=== PATIENT | male | born 1995 | race Caucasian/White ===

== ENCOUNTER 2016-12-03 22:32 | Observation (INO) | payer OTHER ==
[2016-12-03] MEDS ORDERED: NS 0.9% 1000 ML* 2,000 ML IV ONE (22:54)
[2016-12-03] MEDS ORDERED: Acetaminophen TAB* 325 MG PO ONE (23:10)
[2016-12-03 23:28] LABS: Hematocrit 43 % (42-52); Hemoglobin 14.5 g/dl (14.0-18.0); Mean Corpuscular HGB Conc 34 g/dl (31-36); Mean Corpuscular Hemoglobin 29 pg (27-31); Mean Corpuscular Volume 84 fL (80-94); Mean Platelet Volume 8 um3 (7.4-10.4); Red Blood Count 5.07 10^6/ul (4.0-5.4); Red Cell Distribution Width 13 % (10.5-15); White Blood Count 12.3 10^3/ul (3.5-10.8)
[2016-12-03 23:39] LABS: Albumin 4.2 g/dL (3.2-5.2); BUN/Creatinine Ratio 17.3 (8-20); C Reactive Protein 51.56 mg/L (< 5.00); EGFR African American 124.2 (>60); EGFR Non-African American 96.6 (>60); Potassium 3.8 mmol/L (3.5-5.0); Total Bilirubin 0.7 mg/dL (0.2-1.0); Total Protein 7.2 g/dL (6.4-8.9)
[2016-12-04] MEDS ORDERED: Iohexol 300* (CONTRAST) 10 ML SDV IV ONE (00:08)
[2016-12-04] MEDS ORDERED: Ibuprofen TAB* 400 MG PO ONE (00:12)
[2016-12-04 01:05] LABS: Urine Bilirubin Negative (Negative); Urine Glucose Negative (Negative); Urine Nitrite Negative (Negative)
[2016-12-04] MEDS ORDERED: ceFOXitin 2 GM IVPREMIX* 2 GM/50 ML BAG IVPB ONE (03:04)
[2016-12-04] MEDS ORDERED: Morphine INJ* 4 MG/ML 1 ML CARPUJECT IV ONE (03:44)
[2016-12-04] MEDS ORDERED: Ondansetron INJ* 2 MG/ML VIAL IV ONE (03:44)
[2016-12-04] MEDS ORDERED: HYDROmorphone INJ* 1 MG/ML CARPUJECT SYRINGE IV PRN (04:16)
[2016-12-04] MEDS ORDERED: Ondansetron INJ* 2 MG/ML VIAL IV PRN ×2 (04:16→12:21)
[2016-12-04] MEDS ORDERED: diPHENhydraMINE IV* 50 MG/ML 1 ml VIAL (BENADRYL) SLOW PUSH ONE (04:37)
[2016-12-04] MEDS ORDERED: Famotidine IV* 10 MG/ML 2 ML (20 mg) IV SLOW PU ONE (04:37)
[2016-12-04] MEDS ORDERED: methylPREDNISolone 125 MG* 2 ML VIAL IV ONE (04:37)
[2016-12-04] MEDS ORDERED: Albuterol 2.5 MG/3 ML NEB.SOL* (0.083%) INH ONE (04:39)
[2016-12-04] MEDS ORDERED: Levofloxacin 500 MG IVPREMIX(* 500 MG/100 ML BAG IVPB ONE (05:35)
[2016-12-04] MEDS ORDERED: Ciprofloxacin 400MG IVPREMIX(* 400 MG/200 ML BAG IVPB SCH (08:00)
[2016-12-04] MEDS: metroNIDAZOLE IV 500 MG/100ML* 500 MG/100 ML BAG IVPB SCH ×3 (09:25→21:58)
--- NOTE | 2016-12-04 10:09 | HP ---
H&P (Free Text) History and Physical: CC: RLQ abdominal pain HPI: 20 yo M with h/o asthma, ADHD presented to the ED last pm with abdominal pain, RLQ since Tuesday 11/28. He took PeptoBismol on several occasions with some improvement, but the pain persisted and is provoked by eating and movement. He has had loose BMs. He has no history of similar pain in the past but does report a "sensitive stomach." He has no h/o bloody diarrhea, dysuria, and notes his diet was normal throughout the week. Yesterday he felt weak, the pain was worse, and he had poor appetite and nausea. He presented to the [facility] and then to the ED. In the ED he was febrile to 102.4 and had a mild leukocytosis. He did not require pain medicine. He was sent for CT abd/pel that showed findings c/w appendicitis. He was administered cefoxitin and plans were made for admission. He then had anaphylaxis to the cefoxitin and was treated by ED staff and Hospitalist was consulted as well. At present, he denies any wheezing, SOB, tongue or lip swelling. PMH: ADHD, asthma. PSH: knee arthroscopy. Meds: Adderall ER 15 mg daily. All: Cefoxitin (anaphylaxis); Concerta (red face); lactose intolerant. SH: multimedia technician college student; +tob (on/off for 2 yrs; <1 ppd); rare EtOH; No IVDA. FH: Diabetes (mother, brother) ROS: 7 systems reviewed and findings significant for the above; otherwise negative. PE: Vital Signs Temp 97.3 F 12/04/16 07:52 Pulse 62 12/04/16 07:52 Resp 16 12/04/16 08:45 BP 103/50 12/04/16 07:52 Pulse Ox 98 12/04/16 07:52 Gen: WDWN M in NAD; lying in bed. HEENT: NCAT; EOMI; MMM; no otorhinorrhea; OP clear. Lungs: CTA B; no w/r/r. Heart: reg s1s2; no m/r/g. Abd: No scars; ND, soft, tender in RLQ; no Rovsings. BS +. Ext: warm; no c/c/e. Intake & Output 12/03/16 12/04/16 12/04/16 18:59 06:59 18:59 Intake Total 1999 108 Balance 1999 108 Weight 185 lb 185 lb Intake: IV Fluids 1999 108 Laboratory Results - last 24 hr 12/03/16 12/03/16 12/03/16 23:10 23:10 23:10 WBC 12.3 H RBC 5.07 Hgb 14.5 Hct 43 MCV 84 MCH 29 MCHC 34 RDW 13 Plt Count 242 MPV 8 Neut % (Auto) 75.9 Lymph % (Auto) 16.9 L Pima % (Auto) 5.2 Eos % (Auto) 1.7 Baso % (Auto) 0.3 Absolute Neuts (auto) 9.3 H Absolute Lymphs (auto) 2.1 Absolute Monos (auto) 0.6 Absolute Eos (auto) 0.2 Absolute Basos (auto) 0 Absolute Nucleated RBC 0 Nucleated RBC % 0 Sodium 139 Potassium 3.8 Chloride 102 Carbon Dioxide 29 Anion Gap 8 BUN 17 Creatinine 0.98 Est GFR ( Amer) 124.2 Est GFR (Non-Af Amer) 96.6 BUN/Creatinine Ratio 17.3 Glucose 155 H Lactic Acid 1.1 Calcium 10.0 Total Bilirubin 0.70 AST 19 ALT 16 Alkaline Phosphatase 52 C-Reactive Protein 51.56 H Total Protein 7.2 Albumin 4.2 Globulin 3.0 Albumin/Globulin Ratio 1.4 Lipase 18 Urine Color Urine Appearance Urine pH Ur Specific [place] Urine Protein Urine Ketones Urine Blood Urine Nitrate Urine Bilirubin Urine Urobilinogen Ur Leukocyte Esterase Urine Glucose 12/04/16 00:09 WBC RBC Hgb Hct MCV MCH MCHC RDW Plt Count MPV Neut % (Auto) Lymph % (Auto) Pima % (Auto) Eos % (Auto) Baso % (Auto) Absolute Neuts (auto) Absolute Lymphs (auto) Absolute Monos (auto) Absolute Eos (auto) Absolute Basos (auto) Absolute Nucleated RBC Nucleated RBC % Sodium Potassium Chloride Carbon Dioxide Anion Gap BUN Creatinine Est GFR ( Amer) Est GFR (Non-Af Amer) BUN/Creatinine Ratio Glucose Lactic Acid Calcium Total Bilirubin AST ALT Alkaline Phosphatase C-Reactive Protein Total Protein Albumin Globulin Albumin/Globulin Ratio Lipase Urine Color Yellow Urine Appearance Clear Urine pH 5.0 Ur Specific [place] 1.011 Urine Protein Negative Urine Ketones Negative Urine Blood Negative Urine Nitrate Negative Urine Bilirubin Negative Urine Urobilinogen Negative Ur Leukocyte Esterase Negative Urine Glucose Negative A/P: 20 yo M with ADHD, asthma, recent anaphylactic reaction, with acute appendicitis. Admit to [facility]. Preop for laparoscopic appendectomy. The procedure/I/R/B/A and option of no treatment have been discussed. Expectations regarding hospitalization and recovery/return to activity explained. Potential of needing open procedure and extension of procedure depending on findings also explained. Risks explained, including, not ltd to: bleeding, infection, pain, scarring, blood clots, pneumonia, asthma exacerbation, visceral injury, N/V, and risks of GETA. All his questions have been answered. He states understanding and agrees to proceed. Levaquin/flagyl given. NPO. IVF. Steroid per Hospitalist.
--- NOTE | 2016-12-04 10:30 | RAD ---
INDICATION: RIGHT lower quadrant pain. Fever. Diarrhea. Question appendicitis versus mesenteric adenitis. COMPARISON: No relevant prior exams available on the [facility] PACS for comparison. TECHNIQUE: Multidetector CT images were obtained from the lung bases to the ischial tuberosities with 112 mL Omnipaque 300 IV and oral contrast. Multiplanar reformation. REPORT: Unremarkable visualized inferior thorax. The liver, gallbladder, pancreas, and spleen are unremarkable. Severe inflammation of the medially extending appendix measuring up to 1.5 cm diameter. Associated mural thickening at the cecal caput. Moderately severe perienteric inflammatory change. No loculated perienteric abscess evident. Associated RIGHT lower quadrant lymphadenopathy with dominant 1.5 cm short axis diameter node. Negative for CT abnormality of the small bowel or remainder of the colon. Small volume of ascites. Negative for free air. Normal adrenal glands. Unremarkable kidneys with symmetric nephrograms and pyelograms. Unremarkable nondilated ureters and partially distended urinary bladder. Unremarkable abdominal aorta and iliac arteries. Physiologic distention of the IVC. Negative for suspicious osseous lesions. IMPRESSION: Acute appendicitis with associated significant periappendiceal inflammatory change and reactive lymph nodes as well as small volume of ascites. Negative for perienteric abscess.
--- NOTE | 2016-12-04 10:32 | CONS ---
CC: [facility] CONSULTATION REPORT: DATE OF CONSULTATION: 12/04/16 TIME OF EVALUATION: 0500 PRIMARY CARE PHYSICIAN: [facility]. REQUESTING PHYSICIAN: Agustín Alcala MD REASON FOR CONSULTATION: Evaluation for reaction to antibiotic. HISTORY OF PRESENT ILLNESS: This is a 20-year-old male with an unremarkable past medical history, presented to the emergency room with diffuse abdominal pain for the past week and chills. The patient states he has had abdominal pain for the past week with loose stools and this evening he had a fever and shaking and he came to the emergency room for further evaluation. He has had mostly right lower quadrant pain. He denied any nausea, vomiting. No rash. Decrease in PO. The patient was seen in the emergency room, was evaluated, had a CAT scan that showed possibly perforated appendicitis without abscess or free air. Dr. Alcala was notified and admitted the patient for plans for surgery. He ordered cefoxitin 2 g. The patient was started on the antibiotics around 4: 20. Shortly thereafter he developed, states that his mouth began itching. His lips and tongue were itching. He felt short of breath. He was wheezing and coughing. In the emergency room, the patient is on antibiotics, which was continued. He was given 125 mg of Solu- Medrol, Pepcid 40 mg IV and Benadryl 50 mg IV x1. He was also given a DuoNeb treatment. The patient's surgeon, Dr. Alcala was notified and he requested a Hospitalist consultation. On my encounter, the patient denies any further mouth itching. He no longer feels short of breath. There is no coughing. He just states he feels very tired after getting the Benadryl. Otherwise, remainder of review of systems is negative. PAST MEDICAL HISTORY: ADD. MEDICATIONS: Adderall 15 mg extended release q.a.m. ALLERGIES: LACTOSE INTOLERANCE, now would consider he has a CEPHALOSPORIN allergy, reaction is anaphylaxis. SOCIAL HISTORY: Patient is a senior at [employer], but was a remote light smoker. Rare alcohol use. No illicit drug use. His healthcare proxies are his parents. CODE STATUS: Full code. REVIEW OF SYSTEMS: A 14-point review of systems reviewed and as mentioned in the HPI. FAMILY HISTORY: His parents are healthy. PHYSICAL EXAMINATION: Vitals: T-max 100.3, pulse rate 78, respiratory rate 16 , oxygen saturation 99% on room air, blood pressure 129/65. General: No acute distress. Lethargic, but awake easily. HEENT: Head normocephalic. Pupils are equal and reactive, anicteric. Oropharynx: Mucous membranes are moist. Neck supple, no lymphadenopathy. No nuclear rigidity. Cardiac: Regular rate and rhythm. No murmurs, rubs or gallops. Respiratory: Clear to auscultation. No wheezing, rhonchi or rales. Abdomen: Positive bowel sounds. Soft. Right lower quadrant tenderness. No rebound or guarding. Extremities: No clubbing, cyanosis or edema. +2 DP's. Neurological: Alert and oriented x3. No focal neurologic deficits. LABORATORY DATA: White count 12.3, hemoglobin 14.5., hematocrit 43, platelets 242. Sodium 139, potassium 3.8, chloride 102, bicarb 29, BUN 17, creatinine 0.98 , glucose 155. CRP is 51. Urinalysis is negative. RADIOGRAPHIC DATA: Abdomen and pelvic CT, possible perforated appendicitis without abscess or free air. ASSESSMENT: This is a 20-year-old male who presented to the emergency room with a week of abdominal pain, found to have appendicitis, was given cefoxitin and shortly thereafter developed mouth, lip, tongue itching, shortness of breath , and wheezing. Antibiotic was discontinued. He was given steroids. DuoNeb treatment and Pepcid and he is no longer symptomatic. RECOMMENDATION: Discontinue his cefoxitin. Place the cephalosporins as an allergy. Change his antibiotics to Levaquin and Flagyl since he is not longer presenting any residual anaphylaxis symptoms. Would monitor him. He has just received a high dose of methylprednisolone. May consider short burst of steroids. Thank you for this consultation. We will follow along with you. PATIENT TIME: Greater than 45 minutes were spent doing the consultation, more than half the time was spent in direct patient contact. [id number]/[facility] #: [id number] DARIUS
[2016-12-04] MEDS ORDERED: Bupivacaine 0.5% SDV PF* 30 ML VIAL ONE (11:28)
[2016-12-04] MEDS ORDERED: Propofol* 10 MG/ML 20 ML BTL IV PUSH ONE (11:30)
[2016-12-04] MEDS ORDERED: Atracurium* 10 MG/ML 10 ML VIAL ONE (11:30)
[2016-12-04] MEDS ORDERED: fentaNYL* 50 MCG/ML 2 ML VIAL (100 MCG VIAL) ONE ×3 (11:30→13:39)
[2016-12-04] MEDS ORDERED: Midazolam* 1 MG/ML 5 ML VIAL (5 MG) ONE (11:31)
[2016-12-04] MEDS ORDERED: Succinylcholine* 20 MG/ML 10 ML VIAL ONE (11:51)
[2016-12-04] MEDS ORDERED: ceFOXitin 2 GM IVPREMIX* 2 GM/50 ML BAG IVPB SCH (12:00)
[2016-12-04] MEDS ORDERED: Dexamethasone IV* 4 MG/ML 1 ML (4 MG) ONE (12:01)
[2016-12-04] MEDS ORDERED: DiMENhydriNATE IV* 50 MG/ML VIAL IV PUSH PRN (12:21)
[2016-12-04] MEDS ORDERED: Ondansetron INJ* 2 MG/ML VIAL ONE (12:56)
--- NOTE | 2016-12-04 13:15 | SURGPN ---
Brief Operative Note - Surgery Procedures: PREOP DX: ACUTE APPENDICITIS POSTOP DX: SAME WITH ABSCESS PROC: LAP APPENDECTOMY ; DRAINAGE ABSCESS SURG: MECENAS ASSIST: NONE ANES: GET/SANITO EBL: 100ML IVF: 1250 ML LR SPEC: APPENDIX DRAIN: NONE COMPL: NONE COND: STABLE; EXTUBATED; TO RR. FINDINGS: APPENDICITIS WITH SMALL PERIAPPENDICEAL ABSCESS. NO OBVIOUS PERFORATION.
[2016-12-04] MEDS ORDERED: oxyCODONE TAB* 5 MG TAB PO PRN (13:21)
[2016-12-04] MEDS ORDERED: Acetaminophen TAB* 325 MG PO PRN (13:23)
[2016-12-04] MEDS ORDERED: diPHENhydraMINE IV* 50 MG/ML 1 ml VIAL (BENADRYL) IV PRN (13:24)
[2016-12-04] MEDS ORDERED: diPHENhydraMINE PO* 25 MG PO PRN (13:24)
[2016-12-04] MEDS ORDERED: HYDROmorphone INJ* 1 MG/ML CARPUJECT SYRINGE ONE (13:39)
[2016-12-04] MEDS: fentaNYL* 50 MCG/ML 2 ML VIAL (100 MCG VIAL) IV PRN ×2 (13:41→14:05)
[2016-12-04] MEDS: HYDROmorphone INJ* 1 MG/ML CARPUJECT SYRINGE IV PRN ×5 (13:42→14:27)
[2016-12-04] MEDS: oxyCODONE TAB* 5 MG TAB PO PRN (16:13)
[2016-12-05] MEDS: oxyCODONE TAB* 5 MG TAB PO PRN ×2 (02:11→06:02)
[2016-12-05] MEDS: metroNIDAZOLE IV 500 MG/100ML* 500 MG/100 ML BAG IVPB SCH (05:59)
[2016-12-05] MEDS ORDERED: Levofloxacin 500 MG IVPREMIX(* 500 MG/100 ML BAG IVPB ONE ×2 (06:00→08:00)
--- NOTE | 2016-12-05 08:41 | SURGPN ---
Subjective - Introduction -: Reports doing very well, mild incisional pain on occasions, relieved with pain meds. Tolerating diet, denies nausea or vomiting. Ambulatory. Ready to go home. - Medications -: Active Medications Generic Name Dose Route Start Last Admin Trade Name Freq PRN Reason Stop Dose Admin Acetaminophen 650 mg 12/04/16 13:23 Tylenol Tab* PO Q6H PRN FEVER Diphenhydramine HCl 50 mg 12/04/16 13:24 Benadryl Iv* IV Q6H PRN PRURITIS Diphenhydramine HCl 25 mg 12/04/16 13:24 Benadryl Po* PO Q6H PRN ITCHING Hydromorphone HCl 1 mg 12/04/16 04:16 12/04/16 15:01 Dilaudid Iv* IV 1 mg Q4H PRN Administration PAIN Lactated Ringer's 1,000 mls @ 150 mls/hr 12/04/16 05:00 12/05/16 07:09 Lactated Ringers 1000 Ml Bag* IV 150 mls/hr PER RATE PRASAD Administration Metronidazole/Sodium Chloride 500 mg in 100 mls @ 100 mls/hr 12/04/16 06:00 12/05/16 05:59 Flagyl 500 Mg Ivpb* IVPB 100 mls/hr Q8H PRASAD Administration Levofloxacin/Dextrose 500 mg in 100 mls @ 100 mls/hr 12/05/16 08:00 12/05/16 07:13 Levaquin 500 Mg Ivpremix(*) IVPB 12/05/16 08:59 100 mls/hr 0800 ONE Administration Influenza Virus Vaccine 0.5 ml 12/05/16 09:00 Fluarix *Quad* 2016-* IM 12/05/16 09:01 .ONCE ONE Ondansetron HCl 4 mg 12/04/16 04:16 Zofran Inj* IV Q6H PRN NAUSEA Oxycodone HCl 5 mg 12/04/16 13:21 12/04/16 22:01 Roxycodone Tab* PO 5 mg Q4H PRN Administration PAIN Oxycodone HCl 10 mg 12/04/16 13:21 12/05/16 06:02 Roxycodone Tab* PO 10 mg Q4H PRN Administration PAIN Prednisone 40 mg 12/05/16 09:00 Deltasone Tab* PO 12/06/16 09:01 DAILY PRASAD Objective - Objective -: Awake and alert, appears comfortable and in NAD - Intake and Output -: Intake & Output 12/03/16 12/04/16 12/05/16 12/06/16 06:59 06:59 06:59 06:59 Intake Total 4662 Output Total 1700 Balance 2962 Weight 185 lb Intake: IV Fluids 3177 LR 2176 IVPB 345 ABX - FLAGYL 230 Oral 1140 Output: Urine 1700 Other: Estimated Void Medium Estimated Blood Loss MINIMAL Comment Surgical Physical Exam - Comments -: VSS, afebrile Lungs CTA bilat. Heart RRR, no murmurs Abdomen soft, ND, mild incisional tenderness. Incisions C/D/I. No guarding or rigidity. Ext. without edema Assessment and Plan - Assessment -: A 20 y/o male, POD#1, s/p laparoscopic appendectomy, doing well. - Plan Additional Comments: Plan to d/c to home today. Will provide PO Levaquin for 5 days and Percocet prn No need for steroid coverage since all his symptoms were essentially resolved F/U with office next week
[2016-12-05 08:56] VITALS: BP 118/51
[2016-12-05] MEDS ORDERED: Influenza VAC *QUAD* 2017-18* 0.5 ML SYRINGE IM ONE (09:00)
[2016-12-05] MEDS ORDERED: predniSONE TAB* 20 MG PO SCH (09:00)
--- NOTE | 2016-12-05 14:19 | DS ---
AMENDED REPORT NOW INCLUDES COSIGNER DESIGNATION - ESIGNED BEFORE ADJUSTMENTS CC: Dr. Jessica Reese* DISCHARGE SUMMARY: DATE OF ADMISSION: 12/04/16 DATE OF DISCHARGE: 12/05/16 PATIENT OF: Dr. Agustín Alcala * (DICTATED BY FRANCE JUAREZ) ADMISSION DIAGNOSIS: Acute appendicitis. DISCHARGE DIAGNOSES: 1. Acute appendicitis. 2. Anaphylactic reaction to cephalosporins. ADMITTING PHYSICIAN: Dr. Agustín Alcala. CONSULTATION: Dr. Jessica Reese. PROCEDURES: Laparoscopic appendectomy on 12/04/16. HISTORY OF PRESENT ILLNESS: Primo is a 20-year-old gentleman who presented to the emergency room yesterday with complaints of worsening abdominal pain. He reports that his pain roughly started earlier in the week and has gotten progressively worse. He took Pepto-Bismol on several occasions with some improvement. However, the pain persisted and was worsening with eating or movement. He had multiple loose bowel movements and he never had any similar complaints in the past. He presented to the emergency room and was found to have mild leukocytosis. He was also febrile with a temperature of 102.[address] scan of the abdomen and pelvis that showed findings consistent with acute appendicitis. Patient was admitted directly to surgical services and was planned to be taken to the operating room this morning. He took a dose of cefoxitin and unfortunately developed symptoms of probable anaphylactic reaction to cephalosporins which was treated by the ED staff and hospitalist as well. Patient took a dose of Solu-Medrol and essentially recovered rather quickly and denied any further complaints of wheezing or shortness of breath. He did not have any tongue or lip swelling and he did not need to be intubated at times. HOSPITAL COURSE: Patient was taken to the operating room after his anaphylactic reaction was resolved. He had laparoscopic appendectomy that was essentially unremarkable. After recovery, patient was transferred to the surgical floor for observation overnight given his anaphylactic reaction. He did extremely well with only mild incisional discomfort, but denied any nausea, vomiting, any shortness of breath or throat swelling. He tolerated regular diet rather well and he was ambulatory out of bed. On the following morning, he continued to improve and he was ready to be discharged. Patient will be discharged to home and will be covered briefly with Levaquin as well as pain medication as needed. He does not seem to have any respiratory issues or any residual anaphylactic reaction and for this reason, there was no need for steroid coverage. However, I encouraged him to call us immediately or go to the ED if he experiences any similar symptoms in the near future. He will be followed up in the office next week. DISCHARGE MEDICATIONS: Include: 1. Adderall ER 15 mg p.o. daily. 2. Levaquin 500 mg 1 tablet p.o. daily x5 days. 3. Oxycodone 5 mg 1 to 2 tablets p.o. q.6 hours p.r.n. for pain. PROBLEM LIST: 1. Anaphylactic reaction to cephalosporin. 2. Acute appendicitis, status post laparoscopic appendectomy on 12/04/16. FRANCE JUAREZ [id number]/[facility] #: [id number] MTDD
--- NOTE | 2016-12-07 07:03 | OP ---
CC: [facility] * DATE OF OPERATION: 12/04/16 - ROOM #335 DATE OF : 89 SURGEON: Agustín Alcala MD FLOORHAND: None. ANESTHESIOLOGIST: Dr. Pulliam. ANESTHESIA: General endotracheal. PRE-OP DIAGNOSIS: Acute appendicitis. POST-OP DIAGNOSIS: Acute appendicitis with periappendiceal abscess. OPERATIVE PROCEDURE: Laparoscopic drainage of periappendiceal abscess and laparoscopic appendectomy. ESTIMATED BLOOD LOSS: Less than 100 mL. IV FLUIDS: 1250 mL of lactated Ringer's. SPECIMEN: Appendix. DRAINS: None. COMPLICATIONS: None. COUNTS: The instrument, needle, and sponge counts were correct. DESCRIPTION OF PROCEDURE: The patient was brought to the operating room and placed on the table supine. Sequential compression devices were placed on both lower extremities and general anesthesia was administered. His abdomen was prepped and draped in the usual sterile fashion. Time-out was performed. Local anesthetic was infiltrated into the skin and soft tissue prior to making each incision. Entry into the abdomen was through a transumbilical incision using an open technique and after the peritoneal cavity, carbon dioxide was insufflated to a pressure of 15 mmHg. Under direct visualization, 5-mm trocars were placed in the suprapubic midline and in the left lower quadrant. Inspection of the right lower quadrant revealed that there was inflammatory process in the area of the cecum and right side of the pelvis. The cecum itself did not appear inflamed and the terminal ileum was identified and did not appear inflamed; however, the fold of Treitz was involved with inflammatory process and as this was dissected free, it became apparent that the finding was indeed the appendix and during manipulation, the pocket of pus was entered and drained and endoscopic suction was used to avoid any spillage and then the area was irrigated until clear. The appendix was then dissected from the surrounding small bowel mesentery and fold of Treitz and elevated and then the appendix was isolated at the base where a window was created in the mesentery of the appendix and then the appendix was divided from the cecum with EndoGIA stapler with a maher cartridge. The mesentery of the appendix was also divided with EndoGIA stapler with maher cartridge and then as the appendix was freed, it was placed in endoscopic retrieval bag and retrieved through the umbilical site. A copious lavage of the abdomen was performed until clear. Staple lines were inspected and noted to be intact and hemostatic. The ports were then removed under direct visualization and carbon dioxide was released. No drain was left as there was no abscess cavity. The incisions were closed with 0 Polysorb in [id number] fashion to approximate the fascia. The umbilical incision and the skin incisions were closed with 4-0 Monocryl in subcuticular fashion and Steri-Strips were applied. The patient tolerated the procedure well. He was extubated and transferred to recovery room in stable condition. [id number]/[facility] #: [id number] MTDD
== END 2016-12-05 10:08 | disposition home or self-care (01) ==
LOC: ED 22:32 → SSU 12-04 03:40
PROVIDERS: ADMIT Surgery; ATTEND Surgery
PROC: 0DTJ4ZZ Resection of Appendix, Percutaneous Endoscopic Approach (ICD-10-PCS; principal; 2016-12-04 11:00)
DX: K35.80 Unspecified acute appendicitis (principal); T88.6XXA Anaphylactic reaction due to adverse effect of correct drug or medicament properly administered, initial encounter; T36.1X5A Adverse effect of cephalosporins and other beta-lactam antibiotics, initial encounter; Y83.8 Other surgical procedures as the cause of abnormal reaction of the patient, or of later complication, without mention of misadventure at the time of the procedure; Y92.239 Unspecified place in hospital as the place of occurrence of the external cause; Z23 Encounter for immunization
CPT/HCPCS: 36415; 74177; 80053; 81003; 83605; 83690; 85025; 86140; 88304; 90471; 90686; 96365; 96366; 96367; 96375; 96376; 99283; A9270-GY; C1776; G0008; G0378; J0330; J0694; J1100; J1170; J1200; J1956; J2250; J2270; J2405; J2704; J2930; J3010; J7512; Q9967